=== PATIENT | female | born 1990 | race African-American/Black ===

== ENCOUNTER 2018-07-13 05:22 | Emergency (ER) | payer MEDICAID ==
--- NOTE | 2018-07-13 06:05 | ED Physician Chart ---
ED Chief Complaint/HPI - Patient Information Date Seen:: 07/13/18 Time Seen:: 06:02 Chief Complaint:: cough History of Present Illness:: 28 yr old female hx of smoking withcugh phlegm uses inhaler and smokes requesting phenergan with codeine cough medicine Vitals:: Vital Signs - 8 hr 07/13/18 05:25 Temp 98.9 F HR 99 RR 20 BP 128/81 O2 Sat % 99 ED Review of Systems - Review of Systems General/Constitutional: No fever Skin: No skin lesions Head: No headache Eyes: No loss of vision ENT: No earache Neck: No neck pain Cardio Vascular: No chest pain Pulmonary: No SOB, Cough GI: No nausea, No vomiting G/U: No dysuria Musculoskeletal: No bone or joint pain Endocrine: No polyuria Psychiatric: No depression Hematopoietic: No bruising Allergic/Immuno: No urticaria Neurological: No syncope ED Past Medical History - Past Medical History Past Medical History: No significant medical hx Family Medical History - Family Member Mother History Unknown: Yes ED Physical Exam - Physical Examination General/Constitutional: Alert, No distress Head: Atraumatic Eyes: Lids, conjuctiva normal Skin: Nl inspection ENMT: External ears, nose nl Neck: Nontender Respiratory: Nl effort/Exclusion Cardio Vascular: RRR, No murmur, gallop, rubs GI: No tenderness/rebounding/guarding : No CVA tenderness Extremities: No tenderness or effusion Neuro/Psych: Alert/oriented ED Assessment - Assessment General Assessment: cough congestion ED Septic Shock - . Is Septic Shock (SBP<90, OR Lactate>4 mmol\L) present?: No - <6hrs of presentation: Vital Signs: Vital Signs - 8 hr 07/13/18 05:25 Temp 98.9 F HR 99 RR 20 BP 128/81 O2 Sat % 99 ED Reassessment (Disposition) - Reassessment Reassessment:: cough same - Diagnosis Diagnosis:: cough bronchititis - Patient Disposition Discharge/Transfer:: Home Condition at Disposition:: Stable
== END 2018-07-13 06:15 | disposition home or self-care (01) ==
LOC: ER 05:22
DX: J40 Bronchitis, not specified as acute or chronic (principal); Z87.891 Personal history of nicotine dependence
CPT/HCPCS: Z7502